=== PATIENT | male | born 1930 | race Caucasian/White ===

== ENCOUNTER 2016-05-31 09:54 | Emergency (ER) | payer MEDICARE, BC ==
[~2016-05-31] VITALS: Ht 180.3 cm; Wt 87.7 kg
[~2016-05-31 09:54] MED LIST: ALEVE 220MG220 MG PO; ASPIRIN 81M81 MG/TA2 PO; ASPIRIN E.C. 8181 MG PO; AVODART 0.5MG0.5 MG PO; BENADRYL50 MG PO; COMPLETE SENIOR1 TA1 PO; GLUCOSAMINE & C1 CA1 PO; LIPITOR 80MG80 MG PO; LOPRESSOR 225 MG/TAB PO; NITROSTAT0.4 MG/TAB SL; PLAVIX 75MG TAB75 MG PO; SYNTHROID0.1 MG/TAB PO; ZESTRIL 5MG5 MG PO
[2016-05-31 09:56] VITALS: BP 111/68; PULSE 66; TEMP 98.7
[2016-05-31 11:13] LABS: BASO % 0.4 % (0.0-2.0); EOS # 0.1 (0.0-0.7); GRAN # 5.1 (1.4-6.5); GRAN % 76.4 % (42.2-75.2); HEMATOCRIT 33.1 % (42.0-52.0); HEMOGLOBIN 11.3 g/dl (13.5-18.0); LYMPH # 0.7 (1.2-3.4); MEAN CELL VOLUME 95 fl (80.0-100.0); MEAN CORPUSCULAR HEMOGLOBIN 32 pg (27.0-31.0); MEAN CORPUSCULAR HGB CONC 34 g/dl (33.0-37.0); MEAN PLATELET VOLUME 11.6 fl (7.4-10.4); MONO # 0.7 (0.1-0.6); PLATELET COUNT 116 K/mm3 (130-400); RED BLOOD COUNT 3.48 M/mm3 (4.20-5.60); WHITE BLOOD COUNT 6.7 K/mm3 (4.8-10.8)
[2016-05-31 11:35] LABS: CALCIUM 8.7 mg/dL (8.4-10.2); CREATININE, serum 0.71 mg/dL (0.66-1.25); POTASSIUM 3.9 mmol/L (3.4-5.0)
[2016-05-31] MEDS ORDERED: LEVAQUIN 750MG750 M1 PO (12:45)
[2016-05-31] MEDS ORDERED: TESSALON PERLE200 MG PO (12:45)
== END 2016-05-31 13:05 | disposition home or self-care (01) ==
LOC: COL.ER 09:54
PROVIDERS: Emergency Medicine
DX: J18.9 Pneumonia, unspecified organism (principal); I10 Essential (primary) hypertension; Z95.0 Presence of cardiac pacemaker
CPT/HCPCS: J0696; J7030

== ENCOUNTER 2018-06-06 11:38 | Emergency (ER) | payer MEDICARE, BC ==
[~2018-06-06] VITALS: Ht 180.3 cm; Wt 86.8 kg
[~2018-06-06 11:38] MED LIST changes: +LEVAQUIN 750MG750 M1 PO; +TESSALON PERLE200 MG PO
[2018-06-06 11:45] VITALS: TEMP 98.6
[2018-06-06] MEDS ORDERED: TOPROL XL 25MG25 MG PO (12:08)
[2018-06-06 12:33] LABS: BASO # 0.1 (0.0-0.2); BASO % 0.8 % (0.0-2.0); EOS # 0.2 (0.0-0.7); GRAN # 5.6 (1.4-6.5); GRAN % 73.7 % (42.2-75.2); HEMATOCRIT 37.9 % (42.0-52.0); HEMOGLOBIN 12.8 g/dl (13.5-18.0); LYMPH # 0.9 (1.2-3.4); MEAN CELL VOLUME 96 fl (80.0-100.0); MEAN CORPUSCULAR HEMOGLOBIN 32 pg (27.0-31.0); MEAN CORPUSCULAR HGB CONC 34 g/dl (33.0-37.0); MONO # 0.5 (0.1-0.6); MONO % 6.9 % (1.7-9.3); PLATELET COUNT 175 K/mm3 (130-400); RED BLOOD COUNT 3.95 M/mm3 (4.20-5.60); REDCELL DISTRIBUTION WIDTH-CV 13.1 % (11.5-14.5)
[2018-06-06 12:42] LABS: ALBUMIN 4.1 gm/dL (3.5-5.0); BILIRUBIN,TOTAL 1.6 mg/dL (0.0-1.0); CALCIUM 9.5 mg/dL (8.4-10.2); CREATININE, serum 0.77 (0.66-1.25); POTASSIUM 4.4 mmol/L (3.4-5.0); TOTAL PROTEIN 7.4 gm/dL (6.4-8.2)
[2018-06-06] MEDS ORDERED: FLEXERIL 1010 MG/TAB PO (13:03)
[2018-06-06 13:47] LABS: COLLECTION METHOD CLEAN CATCH
[2018-06-06 14:00] LABS: MUCOUS Present /lpf; PH 5 (5-8); SQUAMOUS EPITHELIAL None Seen /hpf; URINE APPEARANCE Hazy; URINE BACTERIA None Seen /hpf; URINE BILIRUBIN Negative (NEGATIVE); URINE BLOOD 2+ (NEGATIVE); URINE COLOR Yellow; URINE GLUCOSE Negative (NEGATIVE); URINE KETONE Negative (NEGATIVE); URINE LEUKOCYTE ESTERASE 1+ (NEGATIVE); URINE NITRATE Negative (NEGATIVE); URINE PROTEIN(semi-quant) 1+ (NEGATIVE); URINE RBC >50 /hpf; URINE UROBILINOGEN >=4.0 mg/dL (NEGATIVE)
[2018-06-06] MEDS ORDERED: OMNICEF 300MG300 MG PO (14:02)
[2018-06-06 14:16] VITALS: BP 129/81; PULSE 67
== END 2018-06-06 14:39 | disposition home or self-care (01) ==
LOC: COL.ER 11:38
PROVIDERS: Emergency Medicine
DX: N39.0 Urinary tract infection, site not specified (principal); I25.10 Atherosclerotic heart disease of native coronary artery without angina pectoris
CPT/HCPCS: A4216; J0696; J7030; Q9967

== ENCOUNTER 2021-08-17 09:26 | Emergency (ER) | payer MEDICARE, BC ==
[~2021-08-17] VITALS: Ht 177.8 cm; Wt 88.6 kg
[~2021-08-17 09:26] MED LIST changes: +FLEXERIL 1010 MG/TAB PO; +OMNICEF 300MG300 MG PO; +TOPROL XL 25MG25 MG PO
[2021-08-17 09:31] VITALS: TEMP 97.7
[2021-08-17 09:46] LABS: BASO # 0.1 K/mm3 (0.0-0.2); BASO % 0.9 % (0.0-2.0); EOS # 0.2 K/mm3 (0.0-0.7); GRAN # 6.1 K/mm3 (1.4-6.5); GRAN % 76.3 % (42.2-75.2); HEMATOCRIT 39.9 % (42.0-52.0); HEMOGLOBIN 13.4 g/dl (13.5-18.0); MEAN CELL VOLUME 96 fl (80.0-100.0); MEAN CORPUSCULAR HEMOGLOBIN 32 pg (27-31); MEAN CORPUSCULAR HGB CONC 34 g/dl (33.0-37.0); MEAN PLATELET VOLUME 10.6 fl (7.4-10.4); MONO # 0.5 K/mm3 (0.1-0.6); MONO % 6.4 % (1.7-9.3); PLATELET COUNT 162 K/mm3 (130-400); RED BLOOD COUNT 4.18 M/mm3 (4.20-5.60); REDCELL DISTRIBUTION WIDTH-CV 13.1 % (11.5-14.5)
[2021-08-17 10:05] LABS: ALANINE AMINOTRANSFERASE 25 U/L (0-55); ALBUMIN 3.6 gm/dL (3.4-4.8); ALKALINE PHOSPHATASE 128 U/L (40-150); ANION GAP 12 mmol/L (7-16); AST,SGOT 29 U/L (5-34); BILIRUBIN,TOTAL 2.1 mg/dL (0.2-1.2); BLOOD UREA NITROGEN 19 mg/dL (8-26); CALCIUM 9.4 mg/dL (8.4-10.2); CARBON DIOXIDE 23 mmol/L (23-31); CHLORIDE 106 mmol/L (98-107); CREATININE, serum 0.81 mg/dL (0.72-1.25); GLUCOSE 104 mg/dL (70-99); POTASSIUM 4.3 mmol/L (3.5-4.5); SODIUM 141 mmol/L (136-145); TOTAL PROTEIN 7.1 gm/dL (6.2-8.1)
[2021-08-17 10:12] LABS: TROPONIN-I < 0.010 ng/mL (0.00-0.033)
[2021-08-17 10:23] LABS: INR 1.1 (0.8-3.0)
[2021-08-17] MEDS ORDERED: ASPIRIN 81M81 MG/TA2 PO (12:07)
[2021-08-17] MEDS ORDERED: PACERONE200 MG PO (13:05)
[2021-08-17] MEDS ORDERED: ELIQUIS 5MG PO ×3 (13:05→13:12)
[2021-08-17] MEDS ORDERED: PACERONE400 MG PO (13:05)
[2021-08-17 13:25] VITALS: BP 100/65; PULSE 60
== END 2021-08-17 13:25 | disposition home or self-care (01) ==
LOC: COL.ER 09:26
PROVIDERS: Emergency Medicine; Nurse Practitioner
DX: I48.91 Unspecified atrial fibrillation (principal); Z95.0 Presence of cardiac pacemaker
CPT/HCPCS: J7120